=== PATIENT | female | born 1950 | race Caucasian/White ===

== ENCOUNTER 2025-01-10 22:00 | Emergency (ER) | payer MEDICARE ==
[2025-01-10] MEDS: HYDROmorphone 1 MG/ML Syringe IM ONE (23:19)
== END 2025-01-11 00:56 | disposition home or self-care (01) ==
LOC: JP.ED 22:00
DX: M25.562 Pain in left knee (principal); I10 Essential (primary) hypertension; Z88.0 Allergy status to penicillin; Z79.899 Other long term (current) drug therapy
CPT/HCPCS: 73562; 96372; 99283; J1171